=== PATIENT | female | born 1985 | race Caucasian/White ===

== ENCOUNTER 2022-01-07 06:06 | Inpatient (IN) ==
[~2022-01-07 06:06] MED LIST: Buffered Lidocaine 1% SYRIN 1 ml INTRADERM ONE; Lactated Ringers 1000 ml BAG 1,000 ML IV SCH
[2022-01-07] MEDS ORDERED: Heparin 5000 UNITS/ML 1 mL VIAL ONE (06:26)
[2022-01-07] MEDS ORDERED: Scopolamine 1 mg/72hr PATCH ONE (06:26)
[2022-01-07] MEDS ORDERED: Dexamethasone IV 4 MG/ML VIAL 1 ml VIAL ONE ×2 (06:27→07:20)
[2022-01-07] MEDS ORDERED: Ondansetron 4 mg VIAL 2 MG/ML 2 ml VIAL ONE ×2 (06:27→07:20)
[2022-01-07] MEDS ORDERED: ceFAZolin 1 GM ADVAN 1 GM ADDV.VIAL IVPB ONE (06:27)
[2022-01-07] MEDS ORDERED: Gentamicin ADULT 40 MG/ML VIAL (2 ML VIAL = 80 MG) ONE (07:04)
[2022-01-07] MEDS ORDERED: ceFAZolin VIAL VIAL ONE ×2 (07:04→11:19)
[2022-01-07] MEDS ORDERED: Povidone Iodine 5% OPTH 30 ML BTL ONE (07:04)
[2022-01-07] MEDS ORDERED: Acetaminophen IV 1 GM/100ML 100 ML IV ONE (07:20)
[2022-01-07] MEDS ORDERED: Propofol 10 MG/ML 20 ML BTL ONE ×5 (07:20→14:28)
[2022-01-07] MEDS ORDERED: Rocuronium 50 mg VIAL 10 mg/ml 5 ml VIAL (50 mg) ONE (07:21)
[2022-01-07] MEDS ORDERED: ISOSULFAN BLUE 1% 5 ML VIAL 10 MG/ML SUBCUT ONE (07:21)
[2022-01-07] MEDS ORDERED: Bupivacaine 0.5% SDV PF 30ML VIAL ONE (07:21)
[2022-01-07] MEDS ORDERED: fentaNYL 250 mcg/5 ml 50 MCG/ML 5 ml VIAL (250 MCG) ONE (07:22)
[2022-01-07] MEDS ORDERED: Midazolam 2 mg/2 ml VIAL 1 mg/ml 2 ml VIAL (2 mg) ONE (07:22)
[2022-01-07] MEDS ORDERED: Bupivacaine 0.25% SDV 30 ML ONE (07:56)
[2022-01-07] MEDS ORDERED: HYDROmorphone 0.5 MG/0.5 ML SYRINGE ONE ×3 (08:19→13:59)
[2022-01-07] MEDS ORDERED: diPHENhydraMINE IV 50 MG/ML 1 ml VIAL (BENADRYL) IV PRN (08:20)
[2022-01-07] MEDS ORDERED: Prochlorperazine 5 mg/ml 2 ml VIAL (10 mg) IV PRN (08:20)
[2022-01-07] MEDS ORDERED: Naloxone 0.4 mg VIAL 0.4 mg/ml 1 ml VIAL IV PRN (08:20)
[2022-01-07] MEDS ORDERED: Benzocaine/Menthol LOZ PO PRN (11:19)
[2022-01-07] MEDS ORDERED: Scopolamine 1 mg/72hr PATCH TRANSDERM PRN (11:24)
[2022-01-07] MEDS ORDERED: HYDROmorphone 1 MG/1 ML SYRINGE ONE (15:28)
[2022-01-07] MEDS: HYDROmorphone 1 MG/1 ML SYRINGE IV PRN ×3 (15:34→17:08)
[2022-01-07] MEDS: HYDROcodone/ACETAMIN 5/325 mg TAB PO PRN (18:21)
[2022-01-07] MEDS ORDERED: ceFAZolin 2 GM in NS PREMIX 2 GM/100 ML BAG IVPB SCH (18:30)
[2022-01-07] MEDS ORDERED: ceFAZolin 2 GM PREMIX 2 GM/50 ML BAG IVPB SCH (18:44)
[2022-01-07] MEDS: ceFAZolin 2 GM PREMIX 2 GM/50 ML BAG IVPB SCH (20:00)
[2022-01-07] MEDS: Heparin 5000 UNITS/ML 1 mL VIAL SUBCUT SCH (22:24)
[2022-01-08] MEDS: HYDROcodone/ACETAMIN 5/325 mg TAB PO PRN ×2 (00:37→07:48)
[2022-01-08] MEDS: ceFAZolin 2 GM PREMIX 2 GM/50 ML BAG IVPB SCH ×3 (03:39→21:24)
[2022-01-08] MEDS: Heparin 5000 UNITS/ML 1 mL VIAL SUBCUT SCH ×3 (06:14→21:24)
[2022-01-09] MEDS: ceFAZolin 2 GM PREMIX 2 GM/50 ML BAG IVPB SCH (04:18)
[2022-01-09] MEDS: Heparin 5000 UNITS/ML 1 mL VIAL SUBCUT SCH (05:19)
[2022-01-09 10:58] VITALS: BP 122/61
[2022-01-10] MEDS ORDERED: Scopolamine PATCH Remove NOTE PATCH OFF SCH (07:00)
== END 2022-01-09 13:00 | disposition home or self-care (01) | DRG 362 ==
LOC: AA 06:06 → SSU 17:56
PROVIDERS: ADMIT Student in an Organized Health Care Education/Training Program; ATTEND Student in an Organized Health Care Education/Training Program